=== PATIENT | female | born 1995 | race Caucasian/White ===

== ENCOUNTER → 2020-09-06 12:15 | Outpatient (BNVA) | payer OTHER, SELFPAY | PROVIDERS: PCP Advanced Practice Midwife; Visit Provider Advanced Practice Midwife | DX: Z76.89 Persons encountering health services in other specified circumstances (principal) ==

== ENCOUNTER 2021-02-27 17:31 | Emergency (ER) | payer OTHER, SELFPAY | END 2021-02-27 19:13 | disposition left against medical advice (07) | PROVIDERS: Emergency Provider Emergency Medicine | DX: Z04.2 Encounter for examination and observation following work accident (principal) ==

== ENCOUNTER → 2021-05-20 10:52 | Outpatient (BNVA) | payer OTHER, SELFPAY | PROVIDERS: PCP Internal Medicine; Visit Provider Advanced Practice Midwife ==

== ENCOUNTER 2021-08-25 14:00 | Outpatient (AMB) | payer OTHER, SELFPAY ==
[2021-08-25 14:03] VITALS: BP 130/80; PULSE 85; TEMP 36.2; O2SAT 97; BMI 40.3
--- NOTE | 2021-08-25 14:03 | A.OFFPC_ITS ---
Vital Signs 08/25/21 14:03 Height 5 ft 6 in Weight 250 lb BMI 40.3 BP 130/80 Blood Pressure Location Lt brachial Position Sitting Pulse 85 Pulse Source Pulse Oximeter Temp 97.2 F Temp Source Temporal Artery Scan Pulse Oximetry (%) 97 Oxygen Delivery Method Room Air Intake Visit Reasons: Est Care Account Processor Required: No Accompanied by: Self / Same As Patient Allergies acetaminophen (Percocet) Allergy (Unknown, Verified 10/16/21 08:57) nausea and vomiting amoxicillin (AMOXICILLIN) Allergy (Unknown, Verified 10/16/21 08:57) UNKNOWN Tobacco use date assessed: 08/25/21 HPI Est Care HPI Details Comes in to reestablish care - was last seen in 2019 with Kiersten Kraft, then Kyle rocha MEJIA - (+) Hx of migraine chronic back pain - never had any formal work ups done on her lower back legs feel restless all the time, pain at times - (+) Hx of RLS? smokes marijuana recreationally for pain and anxiety Dx with mood disorder, anxiety, depression and PTSD - was going to [facility] before but stopped due to work schedule conflict Thinks that she was tried on Bupropion in the past but did not think she was on it long enough to be able to tell whether it helped or not Dx also with ADD as a kid - was on unrecalled Rx - thinks she was on Methylphenidate, Concerta, Ritalin at some point seeing Psychology Assistant at [facility] [place] tomorrow - on [facility] Medical History Back pain Morbid obesity with BMI of 40.0-44.9, adult Surgical History History of appendectomy Family History Mother Mental health disorder Father No problems noted. Paternal Aunt Breast cancer Social History Housing: House Patient Tobacco Use Status: Current everyday Tobacco user Tobacco use type: Cigarette Cigarettes Per Day: 4 e-Cigarette/Vaping Use: Never Used Second Hand Smoke Exposure: No Substance Use Type: Marijuana Current occupational status: employed Cognitive needs: No Hearing needs: No Vision needs: No Questionnaire PHQ-9 Over the last 2 weeks, how often have you been bothered by any of the following problems? 1. Little interest or pleasure in doing things: not at all 2. Feeling down, depressed, or hopeless: not at all 3. Trouble falling or staying asleep, or sleeping too much: not at all 4. Feeling tired or having little energy: not at all 5. Poor appetite or overeating: not at all 6. Feeling bad about yourself - or that you are a failure or have let yourself or your family down: not at all 7. Trouble concentrating on things, such as reading the newspaper or watching television: not at all 8. Moving or speaking so slowly that other people could have noticed. Or the opposite - being so fidgety or restless that you have been moving around a lot more than usual: not at all 9. Thoughts that you would be better off or of hurting yourself in some way: not at all Total score: 0 Source: Developed by Drs. Kt Encarnacion, Odalys Herrmann, Klaus Palmer and colleagues, with an educational raymundo from [employer]. Thrive Questionnaire Date Thrive assessed: 08/25/21 I am a: Patient What is your living situation today?: I have a steady place to live Within the past 12 months, did the food you bought not last and you didn't have the money to get more?: Never true Within the past 12 months, did you worry whether your food would run out before you got money to buy more?: Never true Do you have trouble paying for medicines?: No Do you have trouble getting transportation to medical appointments?: No Do you have trouble paying your heating and electricity bill?: No Do you have trouble taking care of your child, family member or friend?: No Do you have trouble with day-to-day activities such as bathing, preparing meals, shopping, managing finances, etc.?: No Are you currently unemployed and looking for a job?: No Are you interested in more education?: No Currently or been in a relationship where the following occur: no concerns reported AUDIT C Alcohol Use Questionnaire (AUDIT-C) 1. How often do you have a drink containing alcohol?: 2-4 times a month 2. How many drinks containing alcohol do you have on a typical day when you are drinking?: 1 or 2 3. How often do you have six or more drinks on one occasion?: Never Total Score: 2 FRANCES-7 AMB Questionnaire FRANCES-7 Date FRANCES - 7 assessed: 08/25/21 Feeling nervous, anxious, or on edge: 3 = Nearly every day Not being able to stop or control worryin = Nearly every day Worrying too much about different things: 3 = Nearly every day Trouble relaxin = Nearly every day Being so restless that it is hard to sit still: 3 = Nearly every day Becoming easily annoyed or irritable: 3 = Nearly every day Feeling afraid as if something awful might happen: 1 = Several days Total FRANCES-7 score (0-4 normal; 5-9 mild; 10-14 moderate; 15-21 severe): 19 Source: Developed by Drs. Kt Encarnacion, Odalys Herrmann, Klaus Palmer and colleagues, with an educational raymundo from [employer]. Physical exam (Primary Care) Vital Signs: Last Vital Signs Temp 97.2 F 08/25/21 14:03 Pulse 85 08/25/21 14:03 BP 130/80 08/25/21 14:03 Pulse Ox 97 08/25/21 14:03 Oxygen Delivery Method Room Air 08/25/21 14:03 BMI result Body Mass Index 40.3 Tobacco/Smoking Status: Tobacco use Status Tobacco use date assessed 08/25/21 08/25/21 14:15 Patient Tobacco Use Status Current everyday Tobacco 08/25/21 14:15 Tobacco use type Cigarette 08/25/21 14:15 e-Cigarette/Vaping Use Never Used 08/25/21 14:15 PHQ-9: PHQ-9 Score PHQ-9: Total score 0 08/25/21 14:52 Thrive Assessment: Date of Thrive Assessment Date Thrive assessed 08/25/21 08/25/21 14:15 Currently or been in a relationship where the following occur: no concerns reported Coding Level of Care Code Admin Sign Off/No Billing Diagnoses Annual physical exam Z00.00 Low back pain M54.50 Left ankle pain M25.572 Knee pain, bilateral M25.561; M25.562 Nocturnal leg cramps G47.62 Morbid obesity with BMI of 40.0-44.9, adult E66.01; Z68.41 Smoker F17.200
== END 2021-08-25 15:17 | disposition home or self-care (01) ==
LOC: HO.HMGH 14:00
PROVIDERS: PCP Internal Medicine; Visit Provider Internal Medicine
DX: Z00.00 Encounter for general adult medical examination without abnormal findings (principal); M54.50 Low back pain, unspecified; M25.572 Pain in left ankle and joints of left foot; M25.561 Pain in right knee; M25.562 Pain in left knee; G47.62 Sleep related leg cramps; E66.01 Morbid (severe) obesity due to excess calories; Z68.41 Body mass index [BMI] 40.0-44.9, adult; F17.200 Nicotine dependence, unspecified, uncomplicated
CPT/HCPCS: 99499

== ENCOUNTER 2021-08-26 10:30 | Outpatient (REF) | payer OTHER, SELFPAY ==
[2021-08-26 14:28] LABS: CT PCR NOT DETECTED (Not Detect.); NG PCR NOT DETECTED (Not Detect.)
[2021-08-27 10:52] LABS: BV Int Neg Control Negative (Negative); BV Int Pos Control Positive (Positive)
== END 2021-08-26 10:31 | disposition home or self-care (01) ==
LOC: HO.LAB 10:30
PROVIDERS: PCP Internal Medicine; Visit Provider Advanced Practice Midwife
DX: Z01.411 Encounter for gynecological examination (general) (routine) with abnormal findings (principal); R10.2 Pelvic and perineal pain; N92.1 Excessive and frequent menstruation with irregular cycle; Z20.2 Contact with and (suspected) exposure to infections with a predominantly sexual mode of transmission; E66.01 Morbid (severe) obesity due to excess calories; Z68.41 Body mass index [BMI] 40.0-44.9, adult
CPT/HCPCS: 87480; 87491; 87510; 87591; 87660; 88142

== ENCOUNTER → 2021-10-16 08:42 | Outpatient (BNVA) | payer OTHER, SELFPAY | PROVIDERS: PCP Internal Medicine; Visit Provider Advanced Practice Midwife | DX: Z30.46 Encounter for surveillance of implantable subdermal contraceptive (principal) | CPT/HCPCS: 11983; 81025; J7307 ==